=== PATIENT | female | born 1930 | race Caucasian/White ===

== ENCOUNTER 2018-06-11 11:03 | Emergency (ER) | payer OTHER ==
[~2018-06-11] VITALS: Ht 165.1 cm; Wt 68.0 kg
[~2018-06-11 11:03] MED LIST: VALS1TAB2
[2018-06-11 11:32] VITALS: BP_SYST 148
[2018-06-11] MEDS ORDERED: KETOROLAC TROMETHAMINE 30 MG VIAL IM ONE (12:00)
[2018-06-11 12:20] LABS: BILIRUBIN,URINE NEGATIVE (NEGATIVE); BLOOD, URINE 3+ (NEGATIVE); COLOR,URINE YELLOW (YELLOW); GLUCOSE,URINE NEGATIVE (NEGATIVE); KETONES,URINE NEGATIVE (NEGATIVE); LEUKOCYTE ESTERASE ,URINE 2+ (NEGATIVE); NITRITE, URINE NEGATIVE (NEGATIVE); PROTEIN URINE NEGATIVE (NEGATIVE); UROBILINOGEN,URINE 0.2 (0.2-1.0)
[2018-06-11 12:25] LABS: CLARITY/URINE HAZY (CLEAR)
[2018-06-11 12:28] LABS: BACTERIA,URINE FEW /HPF (None Seen)
[2018-06-11 12:29] LABS: MUCUS,URINE 1+ /LPF (None Seen)
[2018-06-11 12:43] LABS: BASOPHILS # (AUTO) 0.1 K/uL (0.0-0.2); BASOPHILS % (AUTO) 0.9 % (0.0-2.0); EOSINOPHILS % (AUTO) 0.3 % (0.0-4.0); HEMATOCRIT 38.3 % (36-48); HEMOGLOBIN 12.8 g/dL (12.0-16.0); LYMPHOCYTES # (AUTO) 0.3 K/uL (1.0-5.5); LYMPHOCYTES % (AUTO) 3.8 % (20.5-51.5); MEAN CORPUSCULAR HEMOGLOBIN 31 pg (27-31); MEAN CORPUSCULAR HGB CONC 33 % (32-36); MEAN CORPUSCULAR VOLUME 92 fL (79.0-98.0); MONOCYTES # (AUTO) 0.4 K/uL (0.0-1.0); PLATELET COUNT (AUTO) 104 K/uL (130-430); RED BLOOD CELL COUNT(AUTO) 4.15 MIL/uL (4.2-6.2); RED CELL DISTRIBUTION WIDTH 12.5 % (9.0-15.0); WHITE BLOOD COUNT (AUTO) 8.8 K/uL (4.8-10.8)
[2018-06-11 13:16] LABS: ANION GAP 7 (5-15); CALCIUM 8.5 mg/dL (8.4-11.0); CHLORIDE 104 mmol/L (98-107); GLUCOSE 120 mg/dL (70-99); POTASSIUM 4.8 mmol/L (3.5-5.1); SODIUM SERUM 139 mmol/L (136-145); UREA NITROGEN, BLOOD 18 mg/dL (8-21)
[2018-06-11 13:23] LABS: ALANINE AMINOTRANSFERASE 26 U/L (12-78); ALBUMIN 3.2 g/dL (3.4-4.8); ASPARTATE AMINOTRANSFERASE 21 U/L (10-37); LIPASE 134 U/L (73-393)
[2018-06-11 14:00] VITALS: BP_SYST 132
== END 2018-06-11 14:00 | disposition home or self-care (01) ==
LOC: SED 11:03
DX: K40.90 Unilateral inguinal hernia, without obstruction or gangrene, not specified as recurrent (principal); N39.0 Urinary tract infection, site not specified; I10 Essential (primary) hypertension; Z90.710 Acquired absence of both cervix and uterus; Z88.5 Allergy status to narcotic agent
CPT/HCPCS: 36415; 74176; 80053; 81000; 83690; 85025; 87086; 93005; 96372; 99284; J1885

== ENCOUNTER 2018-08-30 07:46 | Day surgery (SDC) | payer OTHER ==
[2018-08-21 11:29] LABS: EOSINOPHILS # (AUTO) 0.1 K/uL (0.0-0.4); EOSINOPHILS % (AUTO) 1.2 % (0.0-4.0); HEMATOCRIT 42.4 % (36-48); HEMOGLOBIN 13.9 g/dL (12.0-16.0); LYMPHOCYTES # (AUTO) 0.8 K/uL (1.0-5.5); LYMPHOCYTES % (AUTO) 17.7 % (20.5-51.5); MEAN CORPUSCULAR HEMOGLOBIN 30 pg (27-31); MEAN CORPUSCULAR HGB CONC 33 % (32-36); MEAN CORPUSCULAR VOLUME 92 fL (79.0-98.0); MONOCYTES # (AUTO) 0.3 K/uL (0.0-1.0); MONOCYTES % (AUTO) 6.7 % (1.7-9.3); NEUTROPHILS # (AUTO) 3.3 K/uL (1.8-7.7); NEUTROPHILS % (AUTO) 73.4 % (40.0-70.0); PLATELET COUNT (AUTO) 136 K/uL (130-430); RED BLOOD CELL COUNT(AUTO) 4.62 MIL/uL (4.2-6.2); WHITE BLOOD COUNT (AUTO) 4.4 K/uL (4.8-10.8)
[2018-08-21 11:56] LABS: ALANINE AMINOTRANSFERASE 19 U/L (12-78); ALBUMIN 3.8 g/dL (3.4-4.8); ASPARTATE AMINOTRANSFERASE 14 U/L (10-37); CALCIUM 9.3 mg/dL (8.4-11.0); CHLORIDE 100 mmol/L (98-107); CREATININE 1.41 mg/dL (0.55-1.30); GLUCOSE 114 mg/dL (70-99); POTASSIUM 4.2 mmol/L (3.5-5.1); SODIUM SERUM 136 mmol/L (136-145); TOTAL BILIRUBIN 0.6 mg/dL (0.0-1.0); UREA NITROGEN, BLOOD 29 mg/dL (8-21)
[2018-08-21 12:01] LABS: ANION GAP 7 (5-15)
[~2018-08-30] VITALS: Ht 160 cm; Wt 74.4 kg
[~2018-08-30 07:46] MED LIST changes: +CEFAZOLIN 2 GM IVPB PREMIX 50 ML IV ONE
[2018-08-30 09:39] LABS: INR 0.9 (0.8-1.2); PROTHROMBIN TIME 9.7 SECS (9.5-12.5)
[2018-08-30] MEDS ORDERED: PHENYLEPHRINE HCL 10 MG/ML VIAL (NEOSYNEPHRINE) IV ONE (10:12)
[2018-08-30] MEDS ORDERED: fentaNYL CITRATE 250 MCG/5 ML AMP IV ONE (10:12)
[2018-08-30] MEDS ORDERED: PROPOFOL 200MG/ 20ML VIAL (DIPRIVAN) IV ONE (10:12)
[2018-08-30] MEDS ORDERED: BUPIVACAINE /EPINEPHRINE/PF 0.25% 30 ML VIAL INJ ONE (10:12)
[2018-08-30] MEDS ORDERED: GLYCOPYRROLATE 0.2 MG/ML VIAL IJ ONE (10:12)
[2018-08-30] MEDS ORDERED: SEVOFLURANE 15 MIN GAS INH ONE (10:12)
[2018-08-30] MEDS ORDERED: ROCURONIUM BROMIDE 10 MG/ML (ZEMURON) IV ONE (10:12)
[2018-08-30] MEDS ORDERED: ONDANSETRON HCL 4 MG/2 ML VIAL IVP ONE (10:12)
[2018-08-30] MEDS ORDERED: LR 1,000 ML IV.SOLN IV ONE (10:12)
[2018-08-30] MEDS ORDERED: MIDAZOLAM HCL 5 MG/5 ML VIAL IVP ONE (10:12)
[2018-08-30] MEDS ORDERED: POLYMYXIN 500,000/BACIT.10,000 UNITS in NS IRR 1 L IR ONE ×2 (10:24→10:26)
[2018-08-30] MEDS ORDERED: LR 1,000 ML IV SCH (12:33)
[2018-08-30] MEDS ORDERED: MEPERIDINE HCL/PF 25 MG/ML DISP.SYRIN IVP PRN (12:45)
[2018-08-30] MEDS ORDERED: MEPERIDINE HCL/PF 50 MG/ML AMP IVP PRN ×2 (12:45)
[2018-08-30] MEDS ORDERED: METOCLOPRAMIDE HCL 10 MG/2 ML VIAL IVP PRN (12:45)
[2018-08-30] MEDS: HYDROcodone/ACETAMIN 5-325 MG TAB (NORCO/ VICODIN) PO PRN (14:02)
[2018-08-30] MEDS ORDERED: HYDROcodone/ACETAMIN 5-325 MG TAB (NORCO/ VICODIN) ONE (14:10)
[2018-08-30] MEDS ORDERED: MORPHINE 4 MG/ML INJ. SYRINGE IVP ONE (15:45)
[2018-08-30] MEDS ORDERED: MORPHINE 4 MG/ML INJ. SYRINGE ONE (15:47)
--- NOTE | 2018-08-30 16:00 | NUR ---
received from pacu at this time via [facility] aaox 4. vitals signs stable. has iv access on the left wrist #20. with lr at 100cc/hr infusing on well. daughter is at the bedside. abdominal area has 3 x small dressing on it. dry and intact. no bleeding noted. no pain nor acute distress noted.
--- NOTE | 2018-08-30 16:00 | NUR ---
pOST OPERATIVE NOTES From PACU after robotic assisted laparoscopic bilateral inguinal hernia and umbilical hernia repair with mesh , patient drosy but arousable answer question mild pain but tolerable , vitals signed monitored.
[2018-08-30 16:09] VITALS: BP_SYST 152
[2018-08-30] MEDS ORDERED: AMIO100T4 PO (16:30)
[2018-08-30] MEDS ORDERED: GABA-529 PO (16:30)
[2018-08-30] MEDS ORDERED: LOSA50TA3 PO (16:30)
[2018-08-30] MEDS ORDERED: APIX5TAB4 PO (16:30)
[2018-08-30 17:00] VITALS: BP_SYST 136
--- NOTE | 2018-08-30 17:00 | NUR ---
bed in low position. call lights within reach.
[2018-08-30] MEDS: METOCLOPRAMIDE HCL 10 MG/2 ML VIAL IVP SCH ×2 (18:01→23:04)
[2018-08-30] MEDS: MORPHINE 4 MG/ML INJ. SYRINGE IVP PRN (18:02)
--- NOTE | 2018-08-30 18:04 | NUR ---
MORPHINE 1 MG IV GIVEN FOR ABDOMINAL PAIN.
--- NOTE | 2018-08-30 18:05 | NUR ---
REGLAN IV GIVEN AT LEFT FOREARM SALINE LOCK.
--- NOTE | 2018-08-30 18:25 | NUR ---
verbalized feels much better after the medication.
--- NOTE | 2018-08-30 19:25 | NUR ---
OPENING NOTE RECEIVED CARE OF PT AND BEDSIDE REPORT. PT AAOX4, SITTING UP IN BED, DENIES PAIN AT THIS TIME. BREATHING IS UNLABORED TO ROOM AIR. NO S/S OF DISTRESS. PT ORIENTED TO USE OF CALL LIGHT AND ENCOURAGED TO CALL FOR ASSISTANCE. SAFETY PRECAUTIONS IN PLACE: BED LOCKED IN LOWEST POSITION, CALL LIGHT WITH PT, SIDE RAILS UP X2, BED ALARM ON. WILL MONITOR.
--- NOTE | 2018-08-30 19:32 | NUR ---
endorsed to Jordy becerra. patient is stable. no pain nor acute distress noted.
[2018-08-30 20:00] VITALS: BP_SYST 113
--- NOTE | 2018-08-30 20:05 | NUR ---
AMBULATED TO RESTROOM PT AMBULATED TO RESTROOM WITH NURSES ASSIST. GAIT NOTED TO BE STEADY. PT TOLERATED ACTIVITY WELL WITH NO S/S OF ACUTE DISTRESS. PT RETURNED TO BED AND REPOSITIONED HERSELF FOR COMFORT. PT ENCOURAGED TO CALL FOR FURTHER ASSISTANCE. SAFETY MAINTAINED. WILL MONITOR.
[2018-08-30] MEDS: ceFAZolin SODIUM 2 GM in D5W 50 ML IV SCH (21:07)
--- NOTE | 2018-08-30 21:07 | NUR ---
SCHEDULED ANCEF PT GIVEN SCHEDULED ANCEF VIA IVPB. MEDICATION AND POTENTIAL SIDE EFFECTS EXPLAINED TO PT. PT VERBALIZED UNDERSTANDING. IV IS INFUSING WELL WITH NO SIGN OF INFILTRATION AT IV SITE. PT IS RESTING IN BED, NO S/S OF DISTRESS, SAFETY MAINTAINED. WILL MONITOR.
[2018-08-30] MEDS ORDERED: ceFAZolin SODIUM 2 GM in D5W 100 ML IV SCH (22:00)
--- NOTE | 2018-08-30 23:04 | NUR ---
SCHEDULED REGLAN PT GIVEN SCHEDULED REGLAN. MEDICATION AND POTENTIAL SIDE EFFECTS EXPLAINED. PT VERBALIZED UNDERSTANDING. SAFETY MAINTAINED. WILL MONITOR.
[2018-08-31 00:28] VITALS: BP_SYST 103
--- NOTE | 2018-08-31 01:05 | NUR ---
RN ROUNDS: PT SLEEPING IN BED WITH EYES CLOSED. VISIBLE SYMMETRICAL RISE AND FALL OF CHEST TO ROOM AIR. NO S/S OF ACUTE DISTRESS, PT APPEARS COMFORTABLE. SAFETY PRECAUTIONS IN PLACE: BED LOCKED IN LOWEST POSITION, SIDE RAILS UPX2, CALL LIGHT WITH PT, BED ALARM ON. WILL MONITOR.
--- NOTE | 2018-08-31 03:05 | NUR ---
RN ROUNDS: PT RESTING IN BED, AWAKE, STATES THAT HER PAIN IS "NOT SO BAD". WHEN ASKED IF SHE FELT LIKE SHE NEEDED PAIN MEDICATION SHE STATED, "I THINK I WANT TO START TO WEAN OFF OF THE PAIN MEDICATION." PT EDUCATED REGARDING IMPORTANCE OF PAIN CONTROL AND ON THE PRN PAIN MEDICATIONS AVAILABLE TO HER. PT VERBALIZED UNDERSTANDING AND CONTINUED TO REFUSE PAIN MEDICATION AT THIS TIME. PT RESTING IN BED WITH NO S/S OF ACUTE DISTRESS. BREATHING IS UNLABORED TO ROOM AIR. PT ENCOURAGED TO CALL FOR ANY ASSISTANCE. SAFETY MAINTAINED. WILL MONITOR.
--- NOTE | 2018-08-31 04:00 | NUR ---
AMBULATED TO RESTROOM PT AMBULATED TO RESTROOM WITH NURSE ASSIST. PT HAD STEADY GAIT. PT RETURNED TO BED AND REPOSITIONED HERSELF FOR COMFORT. PT TOLERATED ACTIVITY WELL, BREATHING IS UNLABORED TO ROOM AIR. NO S/S OF DISTRESS. SAFETY PRECAUTIONS IN PLACE. WILL MONITOR.
[2018-08-31] MEDS: ceFAZolin SODIUM 2 GM in D5W 50 ML IV SCH (05:05)
[2018-08-31] MEDS: MORPHINE 4 MG/ML INJ. SYRINGE IVP PRN (05:05)
[2018-08-31] MEDS: METOCLOPRAMIDE HCL 10 MG/2 ML VIAL IVP SCH ×2 (05:05→11:59)
--- NOTE | 2018-08-31 05:05 | NUR ---
AMBULATED/MORPHINE/SCHEDULED MEDS PT AMBULATED TO RESTROOM WITH NURSE ASSIST. PT RETURNED TO BED AND REPOSITIONED FOR COMFORT. PT TOLERATED ACTIVITY WELL, NO SOB, BREATHING IS UNLABORED TO ROOM AIR. PT REQUESTING MORPHINE FOR SEVERE PAIN. MORPHINE 1 MG IVP ADMINISTERED. MEDICATION AND POTENTIAL SIDE EFFECTS EXPLAINED. PT VERBALIZED UNDERSTANDING. SCHEDULED MEDICATIONS REGLAN IVP AND ANCEF IVPB ALSO ADMINISTERED. MEDICATION ACTIONS AND POTENTIAL SIDE EFFECTS EXPLAINED. PT VERBALIZED UNDERSTANDING. PT ENCOURAGED TO CALL FOR ANY FURTHER ASSISTANCE. SAFETY PRECAUTIONS IN PLACE: BED LOCKED IN LOWEST POSITION, SIDE RAILS UP X2, CALL LIGHT WITH PT, BED ALARM ON. WILL MONITOR.
--- NOTE | 2018-08-31 06:22 | NUR ---
CLOSING NOTE PT RESTING IN BED, AAOX4, BREATHING IS UNLABORED TO ROOM AIR. PT STATES THAT PAIN IS AT A TOLERABLE LEVEL. NO S/S OF ACUTE DISTRESS. PT REPORTS SHE HAS NOT PASSED GAS YET. PT HAS AMBULATED TO THE RESTROOM WITH NO DIFFICULTY THROUGHOUT THE SHIFT. THE THREE ABDOMINAL DRESSINGS REMAIN CLEAN, DRY, AND INTACT. ALL NEEDS MET THROUGHOUT SHIFT. SAFETY MAINTAINED. WILL CONTINUE TO MONITOR AND PROVIDE CARE UNTIL PT CARE IS ENDORSED TO DAY SHIFT RN. Addendum: 08/31/18 at 0650 by Michelle Meadows RN PT REFUSING SCD'S AT THIS TIME STATING, "I HAVE NEUROPATHY AND THEY'RE HURTING MY LEGS." PT EDUCATED REGARDING DVT PROPHYLAXIS, PT VERBALIZED UNDERSTANDING BUT CONTINUED TO REFUSE AT THIS TIME.
--- NOTE | 2018-08-31 07:45 | NUR ---
INITIAL NOTE RECEIVED PT IN BED, NO S/S OF DISTRESS OR SOB NOTED. PT HAS NO C/O PAIN AT THIS TIME, PT IN STABLE CONDITION, PT AAOX4, VERBAL. IV CATHETER PATENT, NO SIGNS OF INFECTION OR INFILTRATION NOTED. PT HAS NO C/O PAIN. BED AT LOWEST POSITION, CALL LIGHT WITHIN REACH, WILL CONTINUE TO MONITOR PT FOR ANY CHANGES, FALL AND SAFETY PRECAUTIONS IN PLACE. PT REFUSED TO HAVE SCD'S IN PLACE BECAUSE THEY HURT HER LEGS, PT AMBULATES WITH STEADY GAIT AND GOT UP TO THE RESTROOM WITH STAFF BESIDE HER.
[2018-08-31 08:03] VITALS: BP_SYST 133
--- NOTE | 2018-08-31 08:45 | NUR ---
AMBULATION PT AMBULATED TO RESTROOM, PT TOLERATED, NURSE AT BEDSIDE, PER PT SHE HAS PASSED GAS.
--- NOTE | 2018-08-31 09:39 | NUR ---
Nutrition Update Martin Scale 17 noted. Pt admitted for umbilical hernia without obstruction. Diet: clear liquid, no red BMI: 29.1 kg/m2 RD to follow per nutrition care standards.
--- NOTE | 2018-08-31 10:20 | NUR ---
ROUNDS PT IN BED, NO S/S OF DISTRESS OR SOB NOTED, PT HAS NO C/O PAIN AT THIS TIME, PT IN STABLE CONDITION, PT WATCHING TV, WILL CONTINUE TO MONITOR PT FOR ANY CHANGES.
[2018-08-31] MEDS: HYDROcodone/ACETAMIN 5-325 MG TAB (NORCO/ VICODIN) PO PRN (10:36)
[2018-08-31 11:30] VITALS: BP_SYST 133
[2018-08-31 12:21] VITALS: BP_SYST 122
--- NOTE | 2018-08-31 12:57 | NUR ---
D/C Patient Patient given medication reconciliation form and D/C instructions. Exit Care provided. Patient verbalized understanding. MD discussed with patient the results and treatment provided. Ambulatory with steady gait for discharge to home. Patient in stable condition, ID band removed. IV catheter removed, intact and dressing applied, no active bleeding. Patient educated on pain management. All belongings sent with patient. Discussed with pt and daughter discharge instructions.
== END 2018-08-31 12:59 | disposition home or self-care (01) ==
LOC: SDS 07:46 → SMU 07:47 → STU 15:28 → SDS 08-31 12:59
PROVIDERS: ATTEND Surgery
DX: K42.9 Umbilical hernia without obstruction or gangrene (principal); K40.20 Bilateral inguinal hernia, without obstruction or gangrene, not specified as recurrent; Z98.890 Other specified postprocedural states; Z79.899 Other long term (current) drug therapy; I48.91 Unspecified atrial fibrillation; I10 Essential (primary) hypertension; I25.119 Atherosclerotic heart disease of native coronary artery with unspecified angina pectoris; J44.9 Chronic obstructive pulmonary disease, unspecified; G62.9 Polyneuropathy, unspecified; M19.90 Unspecified osteoarthritis, unspecified site; E66.3 Overweight
CPT/HCPCS: 36415 ×2; 49585; 49650; 71046; 80053; 85025; 85610; 85730; 88302; C1727; C1781; J0690 ×2; J2250; J2270 ×2; J2370; J2405; J2704; J2765 ×2; J3010; J3490 ×2; J7060; J7120; S2900